=== PATIENT | female | born 1965 | race Caucasian/White ===

== ENCOUNTER 2024-09-07 15:57 | Emergency (ER) | payer OTHER ==
[~2024-09-07] VITALS: Ht 170.2 cm; Wt 70.8 kg
[2024-09-07 16:03] VITALS: TEMP 97.6
--- NOTE | 2024-09-07 18:32 | Physician Documentation ---
History of Present Illness ~ Chief Complaint: See Chief Complaint Stated Complaint: "PUNCTURE" Time Seen by MD: 18:31 HPI Patient presents to the emergency room with intermittent headache and neck pain since 12 days ago when she received a spinal injection or her cervical spine for relief of her upper extremity pain. She had this performed with [facility] by Dr. Flynn. Initially symptoms were not very bad and then after a few days symptoms came terrible and after a few days after that has symptoms began to improve and then began getting worse again a few days ago and I have improved slightly. She called their office today for inquiry and they told her to come in to the emergency room to be evaluated as they feel they may have punctured something. No fevers. Occasional Tylenol. Medication Reconciliation Allergies: Coded Allergies: acetaminophen (Verified Allergy, Unknown, 09/07/24) hydrocodone (Verified Allergy, Unknown, 09/07/24) oxycodone (Verified Allergy, Unknown, 09/07/24) Review of Systems ROS All review of systems negative except as per HPI Physical Exam Vital Signs: Temperature: 97.6, Source: Temporal, Heart Rate: 85, Respiratory Rate: 18, BP: 127/89, Pulse Oximetry: 98, Weight: 70.800 Oxygen Flow Rate: 0 Physical Exam General: Patient is awake, alert, oriented x4 in no acute distress and well appearing.~ Head: Normocephalic and atraumatic. Eyes: Conjunctival normal. EOMI. PERRL. ENT: Mucous membranes moist. Neck: Supple, trachea is midline. 1 cm x 1 cm were bruise to the C6 C-spine with no tenderness or fluctuance to palpation. Able to move neck in all direction without limitations. Chest: Clear to auscultation bilaterally without rales, rhonchi, or wheezes. There is no accessory muscle use or retractions. Cardiac: RRR without murmurs, gallops, or rubs. Progress Results/Orders Results/Orders Orders - VAHID BAE MD Ct Neck Soft Tissues (09/07/24 19:32) Ct Head (09/07/24 19:34) Completed Orders - VAHID BAE MD Ct Neck Soft Tissues (09/07/24 19:32) Ct Head (09/07/24 19:34) Cbc/Diff (09/07/24 18:51) Procalcitonin (09/07/24 18:51) BMP (09/07/24 18:51) Iohexol 300mg/Ml 100ml Inj. (Omnipaque-3 (09/07/24 19:02) Vital Signs 09/07/24 09/07/24 09/07/24 09/07/24 16:03 17:09 19:30 22:07 Temp 97.6 Pulse 78 85 80 77 Resp 16 18 17 16 B/P (MAP) 161/84 127/89 (102) 132/78 (96) 118/76 (90) Pulse Ox 98 98 99 98 O2 Flow Rate 0 0 Laboratory Tests Test 09/07/24 19:41 White Blood Count 7.4 Red Blood Count 4.78 Hemoglobin 13.9 Hematocrit 40.8 Mean Corpuscular Volume 85.3 Mean Corpuscular Hemoglobin 29.1 Mean Corpuscular Hemoglobin Concent 34.1 Red Cell Distribution Width 13.4 Platelet Count 173 Mean Platelet Volume 7.6 Neutrophils (%) (Auto) 75.7 H Lymphocytes (%) (Auto) 19.4 L Monocytes (%) (Auto) 4.1 Eosinophils (%) (Auto) 0.2 Basophils (%) (Auto) 0.6 Neutrophils # (Auto) 5.6 Lymphocytes # (Auto) 1.4 Monocytes # (Auto) 0.3 Eosinophils # (Auto) 0.0 Basophils # (Auto) 0.0 CBC Comment Sodium Level 138 Potassium Level 3.5 Chloride Level 105 Carbon Dioxide Level 26.4 Anion Gap 7 L Blood Urea Nitrogen 14 Creatinine 0.75 Estimated GFR/1.73 m2 79 BUN/Creatinine Ratio 18.7 Glucose Level 118 H Calcium Level 8.3 L Albumin 3.1 L Procalcitonin < 0.05 Chemistry Comments Medical Decision Making Findings Patient presents to the emergency room with headache as per HPI. Differentials include but are not limited to wound CSF leaks, abscess, hematoma therefore CT scan performed which was reassuring. No evidence of meningismus and he had not feel patient requires an LP. Conservative management discussed. Departure Disposition: HOME / SELF CARE / HOMELESS Impression: Primary Impression: Headache Condition: Stable Discharge Instructions: General Headache Without Cause Referrals: NO PRIMARY CARE PROVIDER (PCP) Education Educated: Patient Educated regarding: diagnosis, treatment, need for follow up Signature Scribe Signature: No scribe Attestation: The note accurately reflects work and decisions made by me.Vahid Bae MD 09/07/24 23:07 VAHID BAE MD Sep 07, 2024 18:32
[2024-09-07] MEDS ORDERED: iohexol 300mg/ml 100ml inj. ONE (19:02)
[2024-09-07 19:49] LABS: BASOPHILS % (AUTO) 0.6 % (0-1); EOSINOPHILS % (AUTO) 0.2 % (0-6); HEMATOCRIT 40.8 % (35.0-45.0); HEMOGLOBIN 13.9 g/dl (12.0-16.0); LYMPHOCYTES # (AUTO) 1.4 X10'3 (1.1-4.8); LYMPHOCYTES % (AUTO) 19.4 % (21-51); MEAN CORPUSCULAR HEMOGLOBIN 29.1 PG (27.0-31.0); MEAN CORPUSCULAR HGB CONC 34.1 g/dL (33.0-36.5); MEAN CORPUSCULAR VOLUME 85.3 FL (78-98); MEAN PLATELET VOLUME 7.6 FL (7.4-10.4); MONOCYTES # (AUTO) 0.3 X10'3 (0-0.9); MONOCYTES % (AUTO) 4.1 % (2-12); NEUTROPHILS # (AUTO) 5.6 X10'3 (1.8-7.7); NEUTROPHILS % (AUTO) 75.7 % (42-75); PLATELET COUNT 173 X10'3 (140-440); RED BLOOD COUNT 4.78 X10'6 (4.20-5.60); RED CELL DISTRIBUTION WIDTH 13.4 % (11.5-14.5); WHITE BLOOD COUNT 7.4 X10'3 (4.5-11.0)
[2024-09-07 19:59] LABS: ALBUMIN 3.1 G/DL (3.4-5.0); ANION GAP 7 (8-16); BLOOD UREA NITROGEN 14 MG/DL (7-18); BUN/CREATININE RATIO 18.7 (10.0-20.0); CALCIUM 8.3 MG/DL (8.5-10.1); CHLORIDE 105 MMOL/L (99-107); CREATININE 0.75 MG/DL (0.40-0.90); GLUCOSE 118 MG/DL (70-104); POTASSIUM 3.5 MMOL/L (3.5-5.1); SODIUM 138 MMOL/L (135-145); TOTAL CARBON DIOXIDE 26.4 MMOL/L (24-32); eCRCL 79 ML/MIN; eGFR 79 ML/MIN
--- NOTE | 2024-09-07 21:47 | RADIOLOGY REPORT ---
EXAMINATION: CT SCAN OF NECK WITH INTRAVENOUS CONTRAST CLINICAL HISTORY: 12 days s/p cervical epidural injection TECHNIQUE: Multiple axial images of the neck were obtained with the administration of intravenous con trast. Sagittal and coronal reconstructions performed. One or more of the following radiation dose re duction techniques were used for this examination: automated exposure control, adjustment of the mA a nd/or kV according to patient size, use of iterative reconstruction technique. COMPARISON: None FINDINGS: No discretely enlarged cervical chain lymph nodes identified. The oral, pharyngeal, laryngeal and tracheal airways appear grossly patent. No sizable peritonsillar fluid collections. Prevertebral soft tissues appear within normal limits. Symmetrical enhancement of the thyroid. Major vascular structures appear patent. Straightening of the cervical curvature. No grossly displaced fractures or subluxations identified. Degenerative changes at C3-C4 and C5-C6. Mucosal thickening/debris in the right maxillary sinus. IMPRESSION: Mucosal thickening/debris in the right maxillary sinus. Correlate for possible sinusitis. No other acute findings as visualized. Degenerative changes of the cervical spine. Straightening of the cervical curvature may be in part re lated to patient positioning and/or muscular spasm. If there is persistent clinical concern, MRI may be obtained to further evaluate.
[2024-09-07 22:07] VITALS: BP 118/76; PULSE 77; RESP 16; O2SAT 98
--- NOTE | 2024-09-07 22:55 | RADIOLOGY REPORT ---
EXAM: CT CT HEAD INDICATION: 12 days s/p cervical epidural injection TECHNIQUE: CT of the head without intravenous contrast. Radiation Dose : 1. Head: CT Dose: CTDI volume is 57 mGy. Dose-length product is 959 mGy*cm The dose indicators for CT are the volume Computed Tomography (CT) Dose Index (CTDIvol) and the Dose Length Product (DLP), and are measured in units of mGy and mGy-cm, respectively. These indicators are not patient dose, but values generated from the CT scanner acquisition factors. The report includes radiation exposure data for exposures received during this examination. COMPARISON: None FINDINGS: There is no evidence of acute intracranial hemorrhage, extra-axial collection, mass effect, midline s hift, herniation or hydrocephalus. The ventricles, sulci and cisterns are age appropriate. The esteban-white differentiation is intact. Patchy periventricular and subcortical white matter hypoattenuation is nonspecific but may be related to small vessel ischemic disease. The visualized paranasal sinuses and mastoid air cells are clear. The surrounding soft tissues and osseous structures are unremarkable. IMPRESSION: No acute intracranial abnormality.
== END 2024-09-08 00:24 | disposition home or self-care (01) ==
LOC: ER 15:58
DX: R51.9 Headache, unspecified (principal); M54.2 Cervicalgia; Z88.5 Allergy status to narcotic agent
CPT/HCPCS: 36415; 70450; 70491; 80048; 84145; 85025; 99285; L0172; Q9967